=== PATIENT | female | born 1995 | race Caucasian/White ===

== ENCOUNTER 2021-10-03 19:07 | Emergency (ER) | payer SELFPAY ==
[~2021-10-03] VITALS: Ht 162.6 cm; Wt 46.0 kg
[2021-10-03] MEDS ORDERED: KETOROLAC 15MG/ML VIAL IM ONE (21:00)
[2021-10-03] MEDS ORDERED: LIDOCAINE 5% PATCH TOP SCH (21:00)
[2021-10-03 21:25] VITALS: BP 130/86
== END 2021-10-03 23:47 | disposition home or self-care (01) ==
LOC: ER 19:07
DX: T65.91XA Toxic effect of unspecified substance, accidental (unintentional), initial encounter (principal); G89.29 Other chronic pain; M54.50 Low back pain, unspecified; Y92.9 Unspecified place or not applicable
CPT/HCPCS: 36415; 84702; 96372; 99283; J1885

== ENCOUNTER 2021-10-05 08:54 | Emergency (ER) | payer BC ==
[~2021-10-05] VITALS: Ht 162.6 cm; Wt 122.0 kg
[2021-10-05] MEDS ORDERED: ONDANSETRON HCL 4MG/2ML INJ IV STA (09:25)
[2021-10-05] MEDS ORDERED: SODIUM CHLORIDE 0.9% 1,000 ML IV ONE (09:30)
[2021-10-05] MEDS ORDERED: BUPRENORPHINE 8MG SL TABLET SL SCH (11:00)
[2021-10-05] MEDS ORDERED: BUPRENORPHINE 8MG SL TABLET SL ONE (11:00)
[2021-10-05] MEDS ORDERED: NALO4SPR BOTHNSTRLS (12:20)
[2021-10-05] MEDS ORDERED: ONDA4TAB5 PO (12:20)
[2021-10-05 12:26] VITALS: BP 90/49
== END 2021-10-05 12:49 | disposition home or self-care (01) ==
LOC: ER 08:54
DX: R11.2 Nausea with vomiting, unspecified (principal); F11.23 Opioid dependence with withdrawal; F32.9 Major depressive disorder, single episode, unspecified; Z98.890 Other specified postprocedural states
CPT/HCPCS: 96361; 96374; 99283; J2405; J7030